=== PATIENT | female | born 1965 | race Caucasian/White ===

== ENCOUNTER 2024-06-08 10:31 | Emergency (ER) | payer OTHER, SELFPAY ==
[2024-06-08 10:32] VITALS: BP 197/90; PULSE 77; TEMP 36.8; O2SAT 98; O2SAT 99; BMI 24.3
--- NOTE | 2024-06-08 10:35 | ED_ITS ---
HPI HPI - General Adult General Chief complaint: Allergic Reaction Time Seen by Provider: 06/08/24 10:34 History of Present Illness HPI narrative: 58-year-old female presents for an allergic reaction. About 630 this morning she was at work when she developed symptoms. She felt like her lips were burning and some scratchiness in her throat. She felt like her airway was closing and she went home and took an allergy pill from a friend. She went to an urgent care and they gave her 0.3 mg of IM epinephrine and she is feeling much better. She was transported here by paramedics. She had not taken any new medications or used any new products and had not even had breakfast yet today. Related Data Previous Rx's ?Medication ?Instructions ?Recorded prednisone 10 mg tablet See Rx Instructions .Route 06/08/24 .COMPLEX #18 tabs Allergies Allergy/AdvReac Type Severity Reaction Status Date / Time acetaminophen (From Vicodin) Allergy Severe Rash Verified 06/08/24 10:39 cortisone Allergy Severe itchy Verified 06/08/24 10:39 hydrocodone (From Vicodin) Allergy Severe Rash Verified 06/08/24 10:39 Opioid HPI Opioid Management Most Recent Opioid Data: No Data to Display Review of Systems ROS Narrative A ten point review of systems is negative except as noted above. PFSH PFSH Social History Little interest or pleasure in doing things: not at all Feeling down, depressed, or hopeless: not at all Exam Narrative Exam Narrative: Nurses note and vital signs reviewed and patient is not hypoxic. General: The patient appears well and in no apparent distress. Patient is resting comfortably on cart. Skin: Warm, dry, no pallor noted. There is flushing of her skin particularly on her head and neck area. Head: Normocephalic, atraumatic Eye: Normal conjunctiva, no drainage Ears, Nose, Mouth, and Throat: oral mucosa is moist. Nares patent. Mouth without vesicles. Tongue not swollen. She is handling oral secretions well. Cardiovascular: Regular Rate and Rhythm Respiratory: Patient is in no distress, no accessory muscle use, lungs are clear to auscultation, no wheezing, rales or rhonchi Back: non-tender GI: Soft and nontender Musculoskeletal: The patient has no evidence of calf tenderness, no pitting edema, symmetrical pulses noted bilaterally Neurological: A&O, normal speech Psychiatric: Cooperative Constitutional Vital Signs, click to edit/add: Last Vital Signs Temp 98.3 F 06/08/24 10:32 Pulse 70 06/08/24 11:13 Resp 16 06/08/24 11:13 BP 181/86 H 06/08/24 11:13 Pulse Ox 99 06/08/24 11:13 O2 Del Method Room Air 06/08/24 11:13 Course Vital Signs Vital signs: Vital Signs Temperature 98.3 F 06/08/24 10:32 Pulse Rate 77 06/08/24 10:32 Respiratory Rate 20 06/08/24 10:32 Blood Pressure 197/90 H 06/08/24 10:32 Pulse Oximetry 99 06/08/24 10:32 Oxygen Delivery Method Room Air 06/08/24 10:32 Temperature 98.3 F 06/08/24 10:32 Pulse Rate 70 06/08/24 11:13 Respiratory Rate 16 06/08/24 11:13 Blood Pressure 181/86 H 06/08/24 11:13 Pulse Oximetry 99 06/08/24 11:13 Oxygen Delivery Method Room Air 06/08/24 11:13 Medical Decision Making MDM Narrative Medical decision making narrative: She was observed here in the emergency department and was given IV Solu-Medrol. She has had no further symptoms and was watched and an adequate amount of time and she is able to be discharged. The source of the allergic reaction is unclear at this point. She was prescribed prednisone. Treatment diagnosis and follow-up were discussed with the patient. Differential Diagnosis Differential Diagnosis: Allergic reaction, anaphylaxis Discharge Plan Discharge Chief Complaint: Allergic Reaction Clinical Impression: Allergic reaction Patient Disposition: Home, Self-Care Time of Disposition Decision: 11:41 Condition: Good Mode of Transportation: Private Vehicle Prescriptions / Home Meds: New prednisone 10 mg tablet See Rx Instructions .ROUTE .COMPLEX Qty: 18 0RF Rx Instructions: 3 by mouth daily for three days then 2 by mouth daily for three days then 1 by mouth daily for three days Print Language: [place] Instructions: General Allergic Reaction (ED) Referrals: SHARATH HARRIS [Primary Care Provider] - 1 week
[2024-06-08] MEDS: METHYLPREDNISOLONE SOD SUCC PF 125 MG/2 ML VIAL IVP (10:42)
[2024-06-08 11:13] VITALS: BP 181/86; PULSE 70; O2SAT 99
== END 2024-06-08 11:53 | disposition home or self-care (01) ==
PROVIDERS: Emergency Provider Emergency Medicine; PCP Family Medicine
DX: T78.40XA Allergy, unspecified, initial encounter (principal); X58.XXXA Exposure to other specified factors, initial encounter
CPT/HCPCS: 96374; 99284; J2919